=== PATIENT | male | born 1950 | race Two or more races ===

== ENCOUNTER 2017-12-16 12:46 | Emergency (ER) | payer OTHER ==
[2017-12-16 12:53] VITALS: TEMP 97.4; BMI 23.1
--- NOTE | 2017-12-16 12:58 | PDOC ---
History of Present Illness - General Chief Complaint: Edema Stated Complaint: LEG SWELLING Time Seen by Provider: 12/16/17 12:57 - History of Present Illness Initial Comments: 12/16/17 12:57 Mr. Chen is a 67 yo male w/ pmh of HTN, DM, HLD who presents for evaluation of 4-5 day history of painless bilateral leg swelling. He reports this happens "when it gets hot" and attributes it to playing soccer outside as a child without shoes. He denies any associated symptoms but thought he should get evaluated. The patient denies chest pain, shortness of breath, headache and dizziness. Denies fever, chills, nausea, vomit, diarrhea and constipation. Denies dysuria, frequency, urgency and hematuria. Allergies: Penicillins Past History - Past Medical History Allergies/Adverse Reactions: Allergies Allergy/AdvReac Type Severity Reaction Status Date / Time Penicillins Allergy Verified 12/16/17 12:50 COPD: No Diabetes: Yes HTN: Yes - Suicide/Smoking/Psychosocial Hx Smoking History: Current every day smoker Have you smoked in the past 12 months: Yes Information on smoking cessation initiated: Yes 'Breaking Loose' booklet given: 12/16/17 Hx Alcohol Use: No Drug/Substance Use Hx: No Substance Use Type: None Review of Systems - Review of Systems Comments:: 12/16/17 12:58 GENERAL/CONSTITUTIONAL: No fever or chills. No weakness. HEAD, EYES, EARS, NOSE AND THROAT: No change in vision. No ear pain or discharge. No sore throat. CARDIOVASCULAR: No chest pain or shortness of breath RESPIRATORY: No cough, wheezing, or hemoptysis. GASTROINTESTINAL: No nausea, vomiting, diarrhea or constipation. GENITOURINARY: No dysuria, frequency, or change in urination. MUSCULOSKELETAL: +Bilateral leg swelling for 4-5 days. No MSK pain. No neck or back pain. SKIN: No rash NEUROLOGIC: No headache, vertigo, loss of consciousness, or change in strength/ sensation. ENDOCRINE: No increased thirst. No abnormal weight change HEMATOLOGIC/LYMPHATIC: No anemia, easy bleeding, or history of blood clots. ALLERGIC/IMMUNOLOGIC: No hives or skin allergy. *Physical Exam - Vital Signs Last Vital Signs Temp Pulse Resp BP Pulse Ox 97.4 F L 99 H 18 127/70 100 12/16/17 12:50 12/16/17 12:50 12/16/17 12:50 12/16/17 12:50 12/16/17 12:50 - Physical Exam Comments: 12/16/17 12:58 GENERAL: Awake, alert, and fully oriented, in no acute distress HEAD: No signs of trauma, normocephalic, atraumatic EYES: PERRLA, EOMI, sclera anicteric, conjunctiva clear ENT: Auricles normal inspection, hearing grossly normal, nares patent, oropharynx clear without exudates. Moist mucosa NECK: Normal ROM, supple, no lymphadenopathy, JVD, or masses LUNGS: No distress, speaks full sentences, clear to auscultation bilaterally HEART: +Blowing S1 holosystolic murmur. Regular rate and rhythm, no rubs or gallops, peripheral pulses normal and equal bilaterally. ABDOMEN: Soft, nontender, normoactive bowel sounds. No guarding, no rebound. No masses EXTREMITIES: +Bilateral 2+ pedal edema noted. Normal inspection, Normal range of motion, no edema. No clubbing or cyanosis. NEUROLOGICAL: Cranial nerves II through XII grossly intact. Normal speech, normal gait, no focal sensorimotor deficits SKIN: Warm, Dry, normal turgor, no rashes or lesions noted. ED Treatment Course - LABORATORY CBC & Chemistry Diagram: 12/16/17 13:53 12/16/17 13:53 Medical Decision Making - Medical Decision Making 12/16/17 13:16 Mr. Chen is a 67 yo male w/ pmh as described who presents for evaluation of bilateral leg edema. 12/16/17 15:49 Cardiac workup begun for evaluation of edema. Labs all grossly wnl as below. CXR negative. EKG normal. US negative for DVT. No concern for acute process at this time. Discharging with instructions to follow-up with PCP for further evaluation. *DC/Admit/Observation/Transfer Diagnosis at time of Disposition: Leg swelling - Discharge Dispostion Disposition: HOME - Referrals - Patient Instructions Printed Discharge Instructions: DI for Peripheral Edema -- Bilateral Additional Instructions: Please follow-up with primary care physician for further evaluation. Return to ER if any increase of swelling, fever, chills, pain, or other concerning symptoms. - Post Discharge Activity
--- NOTE | 2017-12-16 13:38 | PDOC ---
Attending Attestation - Resident Resident Name: [email or web address] diaz - ED Attending Attestation I have performed the following: I have examined & evaluated the patient, The case was reviewed & discussed with the resident, I agree w/resident's findings & plan, Exceptions are as noted - HPI HPI: 12/16/17 13:33 67 year old M c/ pmh HTN, DM, HLD p/w pedal extremity edema b/l x 5 days. Pt reports when the weather gets warm, pt's legs swell up. Denies chest pain, SOB, GARCIA. Has been elevating his legs. Denies leg pain. Pt had spoken to his friend, who is a physician, and strongly advised pt to check his heart and kidneys and sent pt to ED for an evaluation. - Physicial Exam PE: 12/16/17 13:34 GENERAL: Awake, alert, and fully oriented, in no acute distress. HEAD: No signs of trauma EYES: EOMI, sclera anicteric, conjunctiva clear ENT: Auricles normal inspection, hearing grossly normal, nares patent NECK: Normal ROM, supple EXTREMITIES: Normal range of motion, 1+ pedal edema b/l. Nahum sign negative. NEUROLOGICAL: Cranial nerves II through XII grossly intact. Normal speech SKIN: Warm, Dry, normal turgor, no rashes or lesions noted. - Medical Decision Making 12/16/17 13:34 Vital Signs Temp Pulse Resp BP Pulse Ox 97.4 F L 99 H 18 127/70 100 12/16/17 12:50 12/16/17 12:50 12/16/17 12:50 12/16/17 12:50 12/16/17 12:50 I suspect that the patient has gravity dependent edema. However, will check UA and Cr for nephrotic syndrome. LFTs for hypoalbuminemia BNP, chest radiograph to r/o CHF Duplex to r/o DVT If workup negative, pt can be d/c home with compression stockings and elevation and follow up with PMD 12/16/17 14:39 CBC, BMP 12/16/17 13:53 12/16/17 13:53 CMP Sodium 137 mmol/L (136-145) 12/16/17 13:53 Potassium 4.4 mmol/L (3.5-5.1) 12/16/17 13:53 Chloride 103 mmol/L (98-107) 12/16/17 13:53 Carbon Dioxide 26 mmol/L (21-32) 12/16/17 13:53 Anion Gap 8 (8-16) 12/16/17 13:53 BUN 26 mg/dL (7-18) H 12/16/17 13:53 Creatinine 1.0 mg/dL (0.7-1.3) 12/16/17 13:53 Creat Clearance w eGFR > 60 (>60) 12/16/17 13:53 Random Glucose 90 mg/dL (74-106) 12/16/17 13:53 Calcium 9.9 mg/dL (8.5-10.1) 12/16/17 13:53 Total Bilirubin 0.2 mg/dL (0.2-1.0) 12/16/17 13:53 AST 41 U/L (15-37) H 12/16/17 13:53 ALT 59 U/L (12-78) 12/16/17 13:53 Alkaline Phosphatase 96 U/L (45-117) 12/16/17 13:53 Creatine Kinase 40 IU/L (39-308) 12/16/17 13:53 Troponin I < 0.02 ng/ml (0.00-0.05) 12/16/17 13:53 B-Natriuretic Peptide 118.06 pg/ml (5-125) 12/16/17 13:53 Total Protein 7.7 g/dl (6.4-8.2) 12/16/17 13:53 Albumin 3.9 g/dl (3.4-5.0) 12/16/17 13:53 Urine Test Results Urine Color Ltyellow 12/16/17 14:10 Urine Appearance Clear 12/16/17 14:10 Urine pH 5.0 (5.0-8.0) 12/16/17 14:10 Ur Specific [place] 1.015 (1.001-1.035) 12/16/17 14:10 Urine Protein Negative (NEGATIVE) 12/16/17 14:10 Urine Glucose (UA) Negative (NEGATIVE) 12/16/17 14:10 Urine Ketones Negative (NEGATIVE) 12/16/17 14:10 Urine Blood Negative (NEGATIVE) 12/16/17 14:10 Urine Nitrite Negative (NEGATIVE) 12/16/17 14:10 Urine Bilirubin Negative (<2.0 mg/dL) 12/16/17 14:10 Ur Leukocyte Esterase Negative (NEGATIVE) 12/16/17 14:10 Chest xray with normal cardiosilohutte. Ultrasound pending. If negative, patient can be discharged with PMD followup. Heart Score/ECG Review #1 ECG reviewed & interpreted by me at: 13:35 12/16/17 13:38 NSR 86, no std/joey, normal axis, normal intervals, QTC 449 msec
[2017-12-16 14:01] LABS: BASO % 0.4 % (0-2.0); EOS % 2.8 % (0-4.5); HEMATOCRIT 36.1 % (35.4-49); HEMOGLOBIN 12.3 GM/dL (11.7-16.9); LYMPH % 32.8 % (8-40); MCH 32.8 pg (25.7-33.7); MCHC 34.2 g/dl (32.0-35.9); MEAN PLT VOLUME 8.1 fl (7.5-11.1); MONO % 7.6 % (3.8-10.2); NEUT % 56.4 % (42.8-82.8); PLATELET COUNT 450 K/MM3 (134-434); RBC 3.76 M/mm3 (4.00-5.60); RDW 15.3 % (11.9-15.9); WHITE BLOOD COUNT 9.8 K/mm3 (4.0-10.0)
[2017-12-16 14:21] LABS: URINE APPEARANCE CLEAR; URINE BILIRUBIN NEGATIVE (<2.0 mg/dL); URINE COLOR LTYELLOW; URINE GLUCOSE (UA) NEGATIVE (NEGATIVE); URINE KETONE NEGATIVE (NEGATIVE); URINE LEUK ESTERASE NEGATIVE (NEGATIVE); URINE NITRITE NEGATIVE (NEGATIVE); URINE PROTEIN NEGATIVE (NEGATIVE); URINE UROBILINOGEN NEGATIVE mg/dL (0.2-1.0)
[2017-12-16 14:30] LABS: ALBUMIN 3.9 g/dl (3.4-5.0); ALK PHOS 96 U/L (45-117); ANION GAP 8 (8-16); BILIRUBIN,TOTAL 0.2 mg/dL (0.2-1.0); BLOOD UREA NITROGEN 26 mg/dL (7-18); CALCIUM 9.9 mg/dL (8.5-10.1); CHLORIDE 103 mmol/L (98-107); CO2 26 mmol/L (21-32); GLUCOSE,RANDOM 90 mg/dL (74-106); POTASSIUM 4.4 mmol/L (3.5-5.1); SGOT/AST 41 U/L (15-37); SGPT/ALT 59 U/L (12-78); SODIUM 137 mmol/L (136-145); TOT PROT 7.7 g/dl (6.4-8.2)
[2017-12-16 14:32] LABS: N-TERMINAL BNP 118.06 pg/ml (5-125)
[2017-12-16 15:24] VITALS: BP 131/71; PULSE 90
--- NOTE | 2017-12-18 22:27 | EKG ---
Test Reason : Blood Pressure : / mmHG Vent. Rate : 086 BPM Atrial Rate : 086 BPM P-R Int : 138 ms QRS Dur : 076 ms QT Int : 376 ms P-R-T Axes : 062 067 077 degrees QTc Int : 449 ms NORMAL SINUS RHYTHM NORMAL ECG NO PREVIOUS ECGS AVAILABLE Confirmed by MADELINE FLORES MD ([id number]) on 12/18/2017 10:27:09 PM Referred By: Confirmed By:MADELINE FLORES MD
== END 2017-12-16 16:03 | disposition home or self-care (01) ==
LOC: JER 12:46
DX: R60.0 Localized edema (principal); I10 Essential (primary) hypertension; E78.5 Hyperlipidemia, unspecified; E78.00 Pure hypercholesterolemia, unspecified; E11.9 Type 2 diabetes mellitus without complications; F17.210 Nicotine dependence, cigarettes, uncomplicated; Z88.0 Allergy status to penicillin
CPT/HCPCS: 36415; 71046-TC-FY; 80053; 81003; 82550; 83880; 84484; 85025; 87086; 93005; 93010; 93970-TC; 99282-25